=== PATIENT | female | born 1990 | race Two or more races ===

== ENCOUNTER 2017-09-29 06:09 | Emergency (ER) | payer OTHER ==
[~2017-09-29] VITALS: Ht 162.6 cm; Wt 59.0 kg
[~2017-09-29 06:09] MED LIST: CEFUROXIME250 MG PO; KETO10TA2 PO; PEPCID40 MG PO
== END 2017-09-29 14:34 | disposition home or self-care (01) ==
LOC: ER 06:09
DX: G44.89 Other headache syndrome (principal)

== ENCOUNTER 2017-11-21 16:38 | Emergency (ER) | payer OTHER ==
[~2017-11-21] VITALS: Ht 162.6 cm; Wt 58.1 kg
== END 2017-11-21 19:18 | disposition home or self-care (01) ==
LOC: ER 16:38
DX: S13.4XXA Sprain of ligaments of cervical spine, initial encounter (principal); V49.9XXA Car occupant (driver) (passenger) injured in unspecified traffic accident, initial encounter; Y93.89 Activity, other specified; Y92.488 Other paved roadways as the place of occurrence of the external cause; Y99.8 Other external cause status

== ENCOUNTER → 2017-12-28 | Emergency (ER) | payer OTHER ==
[~2017-12-28] VITALS: Ht 162.6 cm; Wt 59.0 kg
== END | disposition left against medical advice (07) ==
LOC: ER 04:02
DX: Z53.20 Procedure and treatment not carried out because of patient's decision for unspecified reasons (principal)

== ENCOUNTER 2018-09-12 23:35 | Emergency (ER) | payer OTHER ==
[~2018-09-12] VITALS: Ht 162.6 cm; Wt 59.0 kg
== END 2018-09-13 04:48 | disposition home or self-care (01) ==
LOC: ER 23:35
DX: N39.0 Urinary tract infection, site not specified (principal)

== ENCOUNTER 2019-04-23 16:33 | Outpatient (CLI) | payer OTHER | END 2019-04-23 16:38 | disposition home or self-care (01) | LOC: LAB 16:33 | DX: R05 Cough (principal); J11.1 Influenza due to unidentified influenza virus with other respiratory manifestations ==

== ENCOUNTER 2019-11-09 17:19 | Outpatient (CLI) | payer OTHER | END 2019-11-09 17:26 | disposition home or self-care (01) | LOC: LAB 17:19 | PROVIDERS: ATTEND General Practice | DX: J11.1 Influenza due to unidentified influenza virus with other respiratory manifestations (principal); R53.81 Other malaise; Z20.828 Contact with and (suspected) exposure to other viral communicable diseases ==

== ENCOUNTER 2020-05-14 08:11 | Emergency (ER) | payer OTHER ==
[~2020-05-14] VITALS: Ht 162.6 cm; Wt 59.0 kg
[2020-05-14] MEDS ORDERED: CABERGOLINE0.5 MG (08:30)
[2020-05-14] MEDS ORDERED: CELEBREX200MG PO (12:24)
[2020-05-14] MEDS ORDERED: ORPHENADRINE C100 MG PO (12:25)
== END 2020-05-14 12:54 | disposition home or self-care (01) ==
LOC: ER 08:11
DX: S13.8XXA Sprain of joints and ligaments of other parts of neck, initial encounter (principal); S00.03XA Contusion of scalp, initial encounter; W10.8XXA Fall (on) (from) other stairs and steps, initial encounter; Y93.89 Activity, other specified; Y92.018 Other place in single-family (private) house as the place of occurrence of the external cause; Y99.8 Other external cause status

== ENCOUNTER 2021-01-31 11:49 | Emergency (ER) | payer OTHER ==
[~2021-01-31] VITALS: Ht 162.6 cm; Wt 57.6 kg
[~2021-01-31 11:49] MED LIST changes: +CABERGOLINE0.5 MG; +CELEBREX200MG PO; +ORPHENADRINE C100 MG PO
[2021-01-31] MEDS ORDERED: FOCALIN XR10 MG PO (12:37)
[2021-01-31] MEDS ORDERED: FLONASE ALLERG9.9 ML NASAL (16:47)
[2021-01-31] MEDS ORDERED: KETO10TA2 PO (16:47)
[2021-01-31] MEDS ORDERED: ZITHROMAX500 MG PO (16:47)
[2021-01-31] MEDS ORDERED: MUCINEX DM ER1 EAC1 PO (16:47)
== END 2021-01-31 17:40 ==
LOC: ER 11:49
DX: J06.9 Acute upper respiratory infection, unspecified (principal); R07.0 Pain in throat; B34.9 Viral infection, unspecified; Z03.818 Encounter for observation for suspected exposure to other biological agents ruled out

== ENCOUNTER 2021-02-15 14:31 | Outpatient (CLI) | payer OTHER ==
[~2021-02-15 14:31] MED LIST changes: +FLONASE ALLERG9.9 ML NASAL; +FOCALIN XR10 MG PO; +MUCINEX DM ER1 EAC1 PO; +ZITHROMAX500 MG PO
== END 2021-02-15 14:44 | disposition home or self-care (01) ==
LOC: SONOGRAMA 14:31
PROVIDERS: ATTEND Internal Medicine Endocrinology, Diabetes & Metabolism
DX: E04.8 Other specified nontoxic goiter (principal)

== ENCOUNTER 2022-11-10 13:19 | Emergency (ER) | payer OTHER ==
[~2022-11-10] VITALS: Ht 162.6 cm; Wt 59.0 kg
== END 2022-11-10 18:12 | disposition home or self-care (01) ==
LOC: ER 13:19
DX: N30.90 Cystitis, unspecified without hematuria (principal); Z88.6 Allergy status to analgesic agent; Z88.1 Allergy status to other antibiotic agents

== ENCOUNTER 2024-01-01 15:59 | Outpatient (CLI) | payer OTHER | END 2024-01-01 16:05 | disposition home or self-care (01) | LOC: RAD 15:59 | PROVIDERS: ATTEND Specialist | DX: J45.998 Other asthma (principal) ==

== ENCOUNTER 2024-01-06 12:21 | Emergency (ER) | payer OTHER ==
[~2024-01-06] VITALS: Ht 162.6 cm; Wt 60.8 kg
[2024-01-06] MEDS ORDERED: KETOROLAC TROMETHAMINE 30 MG VIAL IM ONE (15:15)
[2024-01-06] MEDS ORDERED: KETOROLAC TROMETHAMINE 30 MG VIAL ONE (15:26)
[2024-01-06 15:58] LABS: HEMATOCRIT 37.1 % (36.0-45.00); HEMOGLOBIN 12.9 g/dL (12.0-15.00); MEAN CELL VOLUME 86.2 fL (80.00-100.00); MEAN CORPUSCULAR HGB CONC 34.7 g/dl (32.0-36.0); PLATELET COUNT 207 K/uL (150-450); RED CELL DISTRIBUTION WIDTH 13.5 % (11.5-14.5)
[2024-01-06] MEDS ORDERED: ROBITUSSIN COU237 M2 PO (17:06)
[2024-01-06] MEDS ORDERED: AMOX-CLAV 875-1 EACH PO (17:06)
[2024-01-06] MEDS ORDERED: CEFTRIAXONE SODIUM 1,000 MG VIAL ONE (17:28)
[2024-01-06] MEDS ORDERED: CEFTRIAXONE SODIUM 1,000 MG VIAL IM ONE (17:30)
== END 2024-01-06 17:52 ==
LOC: ER 12:23
PROVIDERS: Nurse Practitioner Family
DX: J06.9 Acute upper respiratory infection, unspecified (principal); H66.91 Otitis media, unspecified, right ear; Z20.822 Contact with and (suspected) exposure to COVID-19; Z88.8 Allergy status to other drugs, medicaments and biological substances

== ENCOUNTER 2024-07-29 15:04 | Emergency (ER) | payer OTHER ==
[~2024-07-29] VITALS: Ht 162.6 cm; Wt 59.0 kg
[~2024-07-29 15:04] MED LIST changes: +AMOX-CLAV 875-1 EACH PO; +ROBITUSSIN COU237 M2 PO
[2024-07-29 15:29] VITALS: BP 107/64; O2SAT 99
[2024-07-29] MEDS ORDERED: MECLIZINE HCL 25 MG TABLET PO STA (16:24)
[2024-07-29] MEDS ORDERED: MECLIZINE HCL 25 MG TABLET PO ONE (16:31)
[2024-07-29 16:52] LABS: HEMATOCRIT 39.4 % (36.0-45.00); HEMOGLOBIN 13.7 g/dL (12.0-15.00); MEAN CELL VOLUME 86.7 fL (80.00-100.00); MEAN CORPUSCULAR HEMOGLOBIN 30.2 pg (27.00-32.0); MEAN CORPUSCULAR HGB CONC 34.8 g/dl (32.0-36.0); PLATELET COUNT 261 K/uL (150-450); RED BLOOD COUNT 4.54 M/uL (4.00-6.00); RED CELL DISTRIBUTION WIDTH 13.8 % (11.5-14.5)
[2024-07-29 19:00] LABS: CALCIUM 9.1 mg/dL (8.5-10.1); CREATININE SERUM 0.79 mg/dL (0.55-1.02); GFR 84.34; POTASSIUM 4.05 mEq/L (3.5-5.1)
== END 2024-07-29 19:27 | disposition home or self-care (01) ==
LOC: ER 15:07
PROVIDERS: General Practice
DX: R42 Dizziness and giddiness (principal); Z88.8 Allergy status to other drugs, medicaments and biological substances